=== PATIENT | male | born 1990 | race Asian ===

== ENCOUNTER 2020-05-28 18:00 | Outpatient (CLI) | payer OTHER ==
[2020-05-28 18:42] LABS: PLATELET COUNT 282 K/uL (142-355)
[2020-05-28 18:56] LABS: PARTIAL THROMBOPLASTIN TIME 27.2 SECONDS (24.5-33.6)
== END 2020-05-28 21:35 | disposition home or self-care (01) ==
LOC: LAB 18:00
PROVIDERS: Orthopaedic Surgery
DX: Z01.818 Encounter for other preprocedural examination (principal)
CPT/HCPCS: 36415; 85027; 85610; 85730